=== PATIENT | female | born 1995 ===

== ENCOUNTER 2020-10-11 15:19 | Inpatient (IN) | payer OTHER ==
[~2020-10-11 15:19] MED LIST: Oxytocin/0.9 % Sodium Chloride 30 UNIT/500 ML BAG IV SCH
[2020-10-11] MEDS ORDERED: Morphine 4 MG/ML Syringe ONE (15:32)
[2020-10-11] MEDS ORDERED: Lidocaine 1% 50 ML MDV ONE (15:32)
[2020-10-11] MEDS ORDERED: Methylergonovine 0.2 MG/1 ML Amp ONE (15:41)
[2020-10-11] MEDS ORDERED: Carboprost Tromethamine 250 MCG/1 ML Amp IM PRN (18:15)
[2020-10-11] MEDS ORDERED: Misoprostol 200 MCG Tab PO PRN (18:15)
[2020-10-11] MEDS ORDERED: Methylergonovine 0.2 MG/1 ML Amp IM PRN (18:15)
[2020-10-11] MEDS ORDERED: Nalbuphine 10 MG/1 ML Vial IVPUSH PRN (18:15)
[2020-10-11] MEDS ORDERED: Lidocaine 1% 50 ML MDV INJECT PRN (18:15)
[2020-10-11] MEDS ORDERED: Tranexamic Acid 1,000 MG in Sodium Chloride 0.9% 100 ML IV PRN (18:15)
[2020-10-11] MEDS ORDERED: Water For Irrigation,Sterile 1,000 ML Container IRR PRN (18:15)
[2020-10-11] MEDS ORDERED: Sodium Chloride 0.9% 10 ML SDV IV PRN (18:15)
[2020-10-11] MEDS ORDERED: Butorphanol 1 MG/ML SDV IVPUSH PRN (18:15)
[2020-10-11] MEDS ORDERED: Sodium Chloride 0.9% 10 ML Syringe FLUSH PRN (18:15)
[2020-10-11] MEDS ORDERED: Sodium Chloride 0.9% 2.5 ML Syringe FLUSH PRN (18:15)
[2020-10-11] MEDS ORDERED: Lactated Ringers 1,000 ML IV SCH (18:15)
[2020-10-11] MEDS ORDERED: Witch Hazel Medicated Pads 40/Jar TOP PRN (19:22)
[2020-10-11] MEDS ORDERED: Acetaminophen 500 MG Tab PO PRN ×2 (19:22)
[2020-10-11] MEDS ORDERED: Bisacodyl 10 MG Supp RECTAL PRN (19:22)
[2020-10-11] MEDS ORDERED: oxyCODONE 5 MG Tab PO PRN (19:22)
[2020-10-11] MEDS ORDERED: Benzocaine/Menthol 20%-0.5% Spray 78 GM Cannister TOP PRN (19:22)
[2020-10-11] MEDS ORDERED: Ibuprofen 400 MG Tab PO PRN (19:22)
[2020-10-11] MEDS ORDERED: Lanolin 100% Cream 7 GM Tube TOP PRN (19:22)
--- NOTE | 2020-10-11 19:26 | PCM.DEL ---
L & D Note - General Info Date of Service: 10/11/20 Mother's Due Date: 10/16/20 - Delivery Note Delivery Outcome: Livebirth Presentation: Left Occiput Anterior (EDGAR) Nuchal Cord: None Anesthesia Type: None Anesthetic: Lidocaine (Xylocaine) 1% Plain Local Anesthetic Volume: 4cc Amniotic Fluid Description: Clear Episiotomy Type: None Laceration: 2nd Degree Suture type: Other (monocryl) Suture size: 2-0 Placenta: Intact Cord: 3 Vessels Estimated Blood Loss: 300 Resuscitation Needed: No Score 1 min: 9 Score 5 min: 9 Second Stage Interventions: Reports: Encouragement Given Delivery Comments (Free Text/Narrative):: Live male delivered at 1321 9/9 weight 3860g - General Info Date of Service: 10/11/20 - Patient Data Weight - Most Recent: 84.368 kg Med Orders - Current: Current Medications Carboprost Tromethamine (Hemabate Ds) 250 mcg IM ASDIRECTED PRN PRN Reason: Post Hemorrhage Lactated Ringer's (Ringers, Lactated) 1,000 mls @ 150 mls/hr IV ASDIRECTED MARCO Oxytocin/Sodium Chloride (Oxytocin 30 Unit/500 Ml-Ns) 30 unit in 500 mls @ 500 mls/hr IV TITRATE MARCO Last Admin: 10/11/20 15:21 Dose: 500 mls/hr Documented by: Lidocaine HCl (Xylocaine 1%) 50 ml INJECT ONETIME PRN PRN Reason: Laceration repair Methylergonovine Maleate (Methergine) 0.2 mg IM ASDIRECTED PRN PRN Reason: Post Hemorrhage Misoprostol (Cytotec) 200 mcg PO ONETIME PRN PRN Reason: Post Hemorrhage Discontinued Medications Butorphanol Tartrate (Stadol) 1 mg IVPUSH Q1H PRN PRN Reason: Pain Tranexamic Acid 1,000 mg/ (Sodium Chloride) 110 mls @ 660 mls/hr IV ONETIME PRN PRN Reason: Bleeding Lidocaine HCl (Xylocaine 1%) Confirm Administered Dose 50 ml .ROUTE .STK-MED ONE Stop: 10/11/20 15:33 Last Admin: 10/11/20 18:38 Dose: 50 ml Documented by: Methylergonovine Maleate (Methergine) Confirm Administered Dose 0.2 mg .ROUTE .STK-MED ONE Stop: 10/11/20 15:42 Last Admin: 10/11/20 18:38 Dose: 0.2 mg Documented by: Morphine Sulfate (Morphine) Confirm Administered Dose 4 mg .ROUTE .STK-MED ONE Stop: 10/11/20 15:33 Last Admin: 10/11/20 15:33 Dose: 4 mg Documented by: Nalbuphine HCl (Nubain) 10 mg IVPUSH Q1H PRN PRN Reason: Pain (severe 7-10) Sodium Chloride (Saline Flush) 10 ml FLUSH ASDIRECTED PRN PRN Reason: Keep Vein Open Sodium Chloride (Saline Flush) 2.5 ml FLUSH ASDIRECTED PRN PRN Reason: Keep Vein Open Sodium Chloride (Normal Saline) 10 ml IV ASDIRECTED PRN PRN Reason: IV Use Sterile Water (Sterile Water For Irrigation) 1,000 ml IRR ASDIRECTED PRN PRN Reason: delivery - Problem List & Annotations (1) Vaginal delivery SNOMED Code(s): 169227946 Code(s): O80 - ENCOUNTER FOR FULL-TERM UNCOMPLICATED DELIVERY Status: Acute Current Visit: No - Problem List Review Problem List Initiated/Reviewed/Updated: Yes - My Orders Last 24 Hours: My Active Orders 10/11/20 14:45 Patient Status [ADT] Routine 10/11/20 15:00 Oxytocin/0.9 % Sodium Chloride [Oxytocin 30 Unit/500 ML-NS] 30 unit in 500 ml IV TITRATE 10/11/20 18:15 Carboprost Tromethamine [Hemabate DS] 250 mcg IM ASDIRECTED PRN Lactated Ringers [Ringers, Lactated] 1,000 ml IV ASDIRECTED Lidocaine 1% [Xylocaine 1%] 50 ml INJECT ONETIME PRN Methylergonovine [Methergine] 0.2 mg IM ASDIRECTED PRN miSOPROStoL [Cytotec] 200 mcg PO ONETIME PRN 10/11/20 18:16 May Shower [RC] ASDIRECTED Notify Provider [RC] PRN Up ad Eli [RC] ASDIRECTED Vital Signs [RC] PER UNIT ROUTINE CBC W/O DIFF,HEMOGRAM [HEME] Routine RPR (SYPHILIS SERO) W/ RFLX [REF] Routine TYPE AND SCREEN [BBK] Routine Peripheral IV Insertion Adult [OM.PC] Routine 10/11/20 19:22 Patient Status [ADT] Routine May Shower [RC] ASDIRECTED Up ad Eli [RC] ASDIRECTED Vital Signs [RC] PER UNIT ROUTINE BLOOD GAS ARTERIAL UMBILICAL [BG] Stat BLOOD GAS VENOUS UMBILICAL [BG] Stat Acetaminophen [Tylenol Extra Strength] 1,000 mg PO Q4H PRN Acetaminophen [Tylenol Extra Strength] 500 mg PO Q4H PRN Benzocaine/Menthol [Dermoplast Pain Relief 20%-0.5% [place]] 78 gm TOP ASDIRECTED PRN Docusate Sodium [Colace] 100 mg PO BID PRN Ibuprofen [Motrin] 400 mg PO Q4H PRN Ibuprofen [Motrin] 800 mg PO Q6H PRN Lanolin [Lansinoh HPA] See Dose Instructions TOP ASDIRECTED PRN bisacodyL [Dulcolax] 10 mg RECTAL ONETIME PRN oxyCODONE 5 mg PO Q2H PRN witch Xi [Tucks] 1 pad TOP ASDIRECTED PRN Assess Lochia [WOMSER] Per Unit Routine Assess Uterine Involution [WOMSER] Per Unit Routine Peripheral IV Discontinue [OM.PC] Routine Resuscitation Status Routine 10/12/20 05:11 HEMOGLOBIN/HEMATOCRIT,HH [HEME] Timed
[2020-10-11] MEDS: Ibuprofen 800 MG Tab PO PRN (20:58)
[2020-10-11] MEDS: Docusate Sodium 100 MG Cap PO PRN (20:59)
[2020-10-12] MEDS: Ibuprofen 800 MG Tab PO PRN ×2 (04:29→10:54)
--- NOTE | 2020-10-12 08:01 | OR ---
SURGEON: BERRY AGUDELO DATE OF PROCEDURE: 10/11/2020 PREOPERATIVE DIAGNOSIS: A 25-year-old, G2, P1-0-0-1 at 39 weeks 2 days in active labor. POSTOPERATIVE DIAGNOSIS: A 25-year-old, G2, P1-0-0-1 at 39 weeks 2 days in active labor. PROCEDURE: Normal spontaneous vaginal delivery and repair of second-degree laceration. ESTIMATED BLOOD LOSS: 300. ANESTHESIA: Local 1% lidocaine. COMPLICATION: None. NOTES AND FINDINGS: A live male delivered at 1321. scores 9 and 9. Weight is 3860 g. BRIEF HISTORY ABOUT THE PATIENT: This is a 25-year-old G2, P1-0-0-1 who came in complaining of contractions. She was examined and found to be fully dilated, 0 station. At this point, she was encouraged to push. DESCRIPTION OF PROCEDURE: With good pushing effort, she delivered the head subsequently by the anterior and posterior shoulder. The body of the was delivered. Infant was placed on maternal abdomen. Delayed cord clamping was observed. Then, placenta was delivered via controlled cord traction. After obtaining cord blood gases, uterus was then inspected, was noted to poorly contracted lower uterine segment. So, IM Methergine 0.2 mg was given. Then, the second-degree laceration was infiltrated with 1% lidocaine. Then, it was sutured in layers with a 2-0 Monocryl. All instrument and pad counts were correct x2. The patient tolerated the procedure well and was left in labor and delivery room in stable condition. DENICE / HARDIK /[id number] YOU
--- NOTE | 2020-10-12 08:29 | PCM.PNPP ---
- General Info Date of Service: 10/12/20 Functional Status: Reports: Pain Controlled - Review of Systems General: Reports: No Symptoms HEENT: Reports: No Symptoms Pulmonary: Reports: Other (feels heavy, when walking) Cardiovascular: Reports: No Symptoms Gastrointestinal: Reports: No Symptoms Genitourinary: Reports: No Symptoms Musculoskeletal: Reports: No Symptoms Skin: Reports: No Symptoms Neurological: Reports: No Symptoms Psychiatric: Reports: No Symptoms - General Info Date of Service: 10/12/20 - Patient Data Vital Signs - Most Recent: Last Vital Signs Temp 36.1 C 10/12/20 04:32 Pulse 69 10/12/20 04:32 Resp 15 10/12/20 04:32 BP 101/57 L 10/12/20 04:32 Pulse Ox 99 10/12/20 04:32 Weight - Most Recent: 84.368 kg Lab Results - Last 24 Hours: Laboratory Results - last 24 hr 10/11/20 10/11/20 10/11/20 Range/Units 15:21 15: 19:10 WBC 17.65 H (4.0-11.0) K/uL RBC 4.52 (4.30-5.90) M/uL Hgb 13.3 (12.0-16.0) g/dL Hct 40.1 (36.0-46.0) % MCV 88.7 (80.0-98.0) fL MCH 29.4 (27.0-32.0) pg MCHC 33.2 (31.0-37.0) g/dL RDW Std Deviation 45.2 (28.0-62.0) fl RDW Coeff of Chandler 14 (11.0-15.0) % Plt Count 205 (150-400) K/uL MPV 11.30 (7.40-12.00) fL Nucleated RBC % 0.0 /100WBC Nucleated RBCs # 0 K/uL Cord ABG pH 7.278 (7.18-7.38) Cord ABG Base Excess -8 (-10--2) Cord VBG pH 7.322 (7.25-7.45) Cord VBG Base Excess -6 (-10--2) Blood Type Antibody Screen 10/11/20 10/12/20 Range/Units 19:10 04:46 WBC (4.0-11.0) K/uL RBC (4.30-5.90) M/uL Hgb 11.8 L (12.0-16.0) g/dL Hct 36.4 (36.0-46.0) % MCV (80.0-98.0) fL MCH (27.0-32.0) pg MCHC (31.0-37.0) g/dL RDW Std Deviation (28.0-62.0) fl RDW Coeff of Chandler (11.0-15.0) % Plt Count (150-400) K/uL MPV (7.40-12.00) fL Nucleated RBC % /100WBC Nucleated RBCs # K/uL Cord ABG pH (7.18-7.38) Cord ABG Base Excess (-10--2) Cord VBG pH (7.25-7.45) Cord VBG Base Excess (-10--2) Blood Type O POSITIVE Antibody Screen NEGATIVE Med Orders - Current: Current Medications Acetaminophen (Tylenol Extra Strength) 500 mg PO Q4H PRN PRN Reason: Pain Acetaminophen (Tylenol Extra Strength) 1,000 mg PO Q4H PRN PRN Reason: Pain Benzocaine/Menthol (Dermoplast Pain Relief 20%-0.5% [place]) 78 gm TOP ASDIRECTED PRN PRN Reason: Perineal Comfort Measure Last Admin: 10/11/20 21:00 Dose: 1 canister Documented by: Bisacodyl (Dulcolax) 10 mg RECTAL ONETIME PRN PRN Reason: Constipation Carboprost Tromethamine (Hemabate Ds) 250 mcg IM ASDIRECTED PRN PRN Reason: Post Hemorrhage Docusate Sodium (Colace) 100 mg PO BID PRN PRN Reason: Constipation Last Admin: 10/11/20 20:59 Dose: 100 mg Documented by: Emollient Ointment (Lansinoh Hpa) 0 gm TOP ASDIRECTED PRN PRN Reason: Sore Nipples Last Admin: 10/11/20 21:01 Dose: 1 tube Documented by: Lactated Ringer's (Ringers, Lactated) 1,000 mls @ 150 mls/hr IV ASDIRECTED MARCO Oxytocin/Sodium Chloride (Oxytocin 30 Unit/500 Ml-Ns) 30 unit in 500 mls @ 500 mls/hr IV TITRATE MARCO Last Admin: 10/11/20 15:21 Dose: 500 mls/hr Documented by: Ibuprofen (Motrin) 400 mg PO Q4H PRN PRN Reason: Pain Ibuprofen (Motrin) 800 mg PO Q6H PRN PRN Reason: Pain Last Admin: 10/12/20 04:29 Dose: 800 mg Documented by: Lidocaine HCl (Xylocaine 1%) 50 ml INJECT ONETIME PRN PRN Reason: Laceration repair Methylergonovine Maleate (Methergine) 0.2 mg IM ASDIRECTED PRN PRN Reason: Post Hemorrhage Misoprostol (Cytotec) 200 mcg PO ONETIME PRN PRN Reason: Post Hemorrhage Oxycodone HCl (Oxycodone) 5 mg PO Q2H PRN PRN Reason: Pain Witch Sharda (Tucks) 1 pad TOP ASDIRECTED PRN PRN Reason: comfort care Last Admin: 10/11/20 21:00 Dose: 1 pad Documented by: Discontinued Medications Butorphanol Tartrate (Stadol) 1 mg IVPUSH Q1H PRN PRN Reason: Pain Tranexamic Acid 1,000 mg/ (Sodium Chloride) 110 mls @ 660 mls/hr IV ONETIME PRN PRN Reason: Bleeding Lidocaine HCl (Xylocaine 1%) Confirm Administered Dose 50 ml .ROUTE .STK-MED ONE Stop: 10/11/20 15:33 Last Admin: 10/11/20 18:38 Dose: 50 ml Documented by: Methylergonovine Maleate (Methergine) Confirm Administered Dose 0.2 mg .ROUTE . STK-MED ONE Stop: 10/11/20 15:42 Last Admin: 10/11/20 18:38 Dose: 0.2 mg Documented by: Morphine Sulfate (Morphine) Confirm Administered Dose 4 mg .ROUTE .STK-MED ONE Stop: 10/11/20 15:33 Last Admin: 10/11/20 15:33 Dose: 4 mg Documented by: Nalbuphine HCl (Nubain) 10 mg IVPUSH Q1H PRN PRN Reason: Pain (severe 7-10) Sodium Chloride (Saline Flush) 10 ml FLUSH ASDIRECTED PRN PRN Reason: Keep Vein Open Sodium Chloride (Saline Flush) 2.5 ml FLUSH ASDIRECTED PRN PRN Reason: Keep Vein Open Sodium Chloride (Normal Saline) 10 ml IV ASDIRECTED PRN PRN Reason: IV Use Sterile Water (Sterile Water For Irrigation) 1,000 ml IRR ASDIRECTED PRN PRN Reason: delivery - Interaction Infant Disposition, : [place] in Room with Family Interaction: Holding Infant Feeding: Breastfed Infant; Nursed Well Support Person: - Recovery Exam Fundal Tone: Firm Fundal Level: At Umbilicus Fundal Placement: Midline Lochia Amount: Scant Lochia Color: Rubra/Red Perineum Description: Intact, Minimal Bruising/Swelling Episiotomy/Laceration: None Bladder Status: Voiding Urinary Elimination: Voided - Exam General: Alert, Oriented HEENT: Pupils Equal Neck: Supple Lungs: Clear to Auscultation, Normal Respiratory Effort Cardiovascular: Regular Rate, Regular Rhythm GI/Abdominal Exam: Normal Bowel Sounds, Soft, Non-Tender, No Organomegaly, No Distention, No Abnormal Bruit, No Mass, Pelvis Stable Extremities: Normal Inspection, Normal Range of Motion, Non-Tender, No Pedal Edema, Normal Capillary Refill Skin: Warm, Dry, Intact Neurological: No New Focal Deficit Psy/Mental Status: Alert, Normal Affect, Normal Mood - Problem List & Annotations (1) Vaginal delivery SNOMED Code(s): 981392491 Code(s): O80 - ENCOUNTER FOR FULL-TERM UNCOMPLICATED DELIVERY Status: Acute Current Visit: No - Problem List Review Problem List Initiated/Reviewed/Updated: Yes - My Orders Last 24 Hours: My Active Orders 10/12/20 Breakfast Regular Diet [DIET] 10/12/20 08:26 Ready for Discharge [RC] PER UNIT ROUTINE - Assessment Assessment:: PPD#1 after , would like to go home when 24 hours . She is doing well with . Baby is tongue tied, will set up appt with Dr. Eugene (her treated her first child for this). She notes heaviness in chest when standing. Denies cough, shortness of breath or chest pain, vitals normal. She will try maternity belt, no evidence of DVT on exam. - Plan Plan:: PPD#1 after , dismiss when 24 hours . Discharge instructions reviewed.
[2020-10-12] MEDS: Docusate Sodium 100 MG Cap PO PRN (09:09)
== END 2020-10-12 17:40 | disposition home or self-care (01) | DRG 807 ==
LOC: MW.OBCHECK 15:19 → MW.OB 15:48 → MW.OBCHECK 15:59 → MW.OB 16:00 → OBSVTOIN 19:22 → MW.OB 22:37
PROVIDERS: ADMIT Obstetrics & Gynecology; ATTEND Obstetrics & Gynecology
PROC: 10E0XZZ Delivery of Products of Conception, External Approach (ICD-10-PCS; principal; 2020-10-11)
DX: O70.1 Second degree perineal laceration during delivery (principal); Z37.0 Single live birth; Z3A.39 39 weeks gestation of pregnancy
CPT/HCPCS: 36415; 59025; 59409; 82803; 85014; 85018; 85027; 86592; 86850; 86900; 86901; A9270-GY; J2001; J2210; J2270; J2590